=== PATIENT | male | born 1960 | race Caucasian/White ===

== ENCOUNTER 2020-05-15 09:36 | Emergency (ER) | payer OTHER ==
[2020-05-15] MEDS ORDERED: Albumin 25% 100 ML ONE (10:03)
--- NOTE | 2020-05-15 10:28 | RAD ---
XR Chest 1 View Portable HISTORY: Difficulty breathing COMPARISON: None FINDINGS: The heart size is normal. The lungs are well expanded without focal areas of consolidation, pneumothorax or pleural effusions. IMPRESSION: No radiographic evidence of acute cardiopulmonary process.
[2020-05-15 10:31] LABS: Hemoglobin 8.4 g/dL (14.0-18.0); Mean Corpuscular Hemoglobin 28.7 pg (27.0-31.0); Mean Corpuscular Volume 89.9 fL (78.0-98.0); Mean Platelet Volume 9.7 fL (7.4-10.4); Platelet Count 161 thou/uL (130-400); RBC Distribution Width 15.1 % (11.5-14.5); Red Blood Cell (RBC) Count 2.93 mill/uL (4.70-6.10); White Blood Cell (WBC) Count 3.9 thou/uL (4.8-10.8)
[2020-05-15 10:52] LABS: #Eosinphils 0.1 thou/uL (0.0-0.7); #Lymphocytes 0.3 thou/uL (1.20-3.40); #Monocytes 0.3 thou/uL (0.11-0.59); #Neutrophils 3.1 thou/uL (1.40-6.50); %Basophils 0.4 % (0.0-1.0); %Eosinophils 3.7 % (0.0-10.0); %Lymphocytes 8.9 % (21.0-51.0); %Neutrophils 80.1 % (42.0-75.0); Anisocytosis SLIGHT = 6-15 cells (100X) (0-5/hpf); MDiff Complete? YES; Platelet Clumps SLIGHT; Platelet Morphology Comment Appears Adequate
[2020-05-15 10:54] LABS: ALT (SGPT) 76 U/L (8-55); AST (SGOT) 69 U/L (5-34); Albumin 2.2 g/dL (3.4-4.8); Alkaline Phosphatase 107 U/L (40-110); Anion Gap 12 mmol/L (10-20); BUN (Urea Nitrogen) 24 mg/dL (8.4-25.7); Bilirubin, Total 0.4 mg/dL (0.2-1.2); CK (CPK) 485 U/L (30-200); Calc. Creatinine Clearance 0 mL/min (70-130); Calcium 6.9 mg/dL (7.8-10.44); Carbon Dioxide 17 mmol/L (23-31); Chloride 109 mmol/L (98-107); Estimated GFR-MDRD 63; Globulin 2.5 g/dL (2.4-3.5); Glucose 168 mg/dL (80-115); Lipase 33 U/L (8-78); Potassium 3.5 mmol/L (3.5-5.1); Protein, Total 4.7 g/dL (5.8-8.1); Sodium 134 mmol/L (136-145)
--- NOTE | 2020-05-15 11:52 | CT ---
CT Abdomen Pelvis W Con: 05/15/2020 11:05 AM CLINICAL INFORMATION: Abdominal pain and distention COMPARISON: None. TECHNIQUE: Multiple contiguous axial images were obtained and a CT of the abdomen and pelvis with IV contrast. C oronal and sagittal reformats were performed. FINDINGS: Lower Chest: within normal limits. Abdomen: Liver: Diffuse fatty infiltration. Bile Ducts: Normal caliber. Gallbladder: No calcified gallstones. Normal caliber wall. Pancreas: within normal limits. Spleen: within normal limits. Adrenals: within normal limits. Kidneys: within normal limits. Pelvis: Reproductive Organs: No pelvic masses. Ureters: within normal limits. Bladder: within normal limits. Peritoneum: Moderate diffuse ascites is seen. No free air is seen. Bowel: Evaluation of the bowel is difficult given the ascites and significant amount of fluid within the bowel loops. There is distention of small bowel loops up to 3.0 cm in size without clear transition point. There is a segment of bowel in the left abdomen where an anastomotic staple line is present containing a large amount of air and debris that likely may represent ingested material or stool. This measures 7.3 cm in greatest dimension. It is difficult to connect this to the colon and a ppears this may represent a redundant stomach. Mesentery and Retroperitoneum: No enlarged mesenteric or retroperitoneal lymph nodes. Vessels: Normal. Abdominal Wall: There is a 4.0 cm left inguinal hernia containing nonobstructed left colon. There may be a ventral hernia with a very thin abdominal wall just above the hernia. There is irregularity of the abdominal wall in this location and a fistula or ostomy through the hernia to the skin cannot be excluded. Bones: Within normal limits IMPRESSION: 1. There is an enlarged enteric structure in the left abdomen. This could represent an enlarged segme nt of large bowel, small bowel, or this could be the stomach. Correlate with history of prior surgery because this structure is where an anastomotic staple line is present. If more definitive loc ation of this abnormality within a segment of bowel is desired, then oral contrast should be administered for better characterization of the bowel. 2. Left inguinal hernia containing nonobstructed colon 3. Ascites 4. Fatty liver
[2020-05-15] MEDS ORDERED: Iopamidol-370 76% 500 ML 1 ML ONE (13:19)
== END 2020-05-15 19:45 | disposition short-term general hospital (02) ==
LOC: EDBD 09:36 → ERS 09:36
DX: R18.8 Other ascites (principal); R06.02 Shortness of breath; E11.9 Type 2 diabetes mellitus without complications
CPT/HCPCS: 36415; 71045; 74177; 80053; 82550; 83690; 83880; 84484; 85025; 93005; P9047; Q9967